=== PATIENT | male | born 1960 | race Caucasian/White ===

== ENCOUNTER 2024-08-10 13:49 | Emergency (ER) | payer BC ==
[~2024-08-10] VITALS: Ht 170.2 cm; Wt 90.0 kg
[2024-08-10 13:59] VITALS: BP 168/102
[2024-08-10 14:00] VITALS: BP 158/97
[2024-08-10] MEDS ORDERED: FLUORESCEIN SODIUM 1 MG EA OS ONE (14:00)
[2024-08-10] MEDS ORDERED: OPHTHALMIC IRRIGATION SOLUTION 118 ML BTL OS ONE (14:00)
[2024-08-10] MEDS ORDERED: ALLOPURINOL200 MG PO (14:12)
[2024-08-10] MEDS ORDERED: GLUCOTROL XL10 MG PO (14:13)
[2024-08-10] MEDS ORDERED: OMEPRAZOLE10 MG PO (14:13)
[2024-08-10] MEDS ORDERED: TRICOR145 MG PO (14:14)
[2024-08-10] MEDS ORDERED: JARDIANCE25 MG PO (14:14)
[2024-08-10] MEDS ORDERED: EZETIMIBE10 MG PO (14:14)
[2024-08-10] MEDS ORDERED: METOPROLOL TAR100 MG PO (14:15)
[2024-08-10] MEDS ORDERED: TETRACAINE HCL 0.5 %/4 ML SOL OS ONE (14:20)
[2024-08-10 14:31] VITALS: BP 140/82
[2024-08-10] MEDS ORDERED: FLOXIN OTIC0.3 % OT (14:56)
[2024-08-10 15:01] VITALS: BP 123/75
[2024-08-10 15:14] VITALS: BP 123/75
== END 2024-08-10 15:21 | disposition home or self-care (01) | DRG 115 ==
LOC: ED 13:49
PROC: 08C9XZZ Extirpation of Matter from Left Cornea, External Approach (ICD-10-PCS; principal; 2024-08-10)
DX: T15.02XA Foreign body in cornea, left eye, initial encounter (principal); X37.0XXA Hurricane, initial encounter; W44.9XXA Unspecified foreign body entering into or through a natural orifice, initial encounter; Y92.007 Garden or yard of unspecified non-institutional (private) residence as the place of occurrence of the external cause